=== PATIENT | female | born 1960 | race Caucasian/White ===

== ENCOUNTER 2018-07-29 14:08 | Emergency (ER) | payer OTHER | END 2018-07-29 14:30 | disposition left against medical advice (07) | LOC: JD.ED 14:08 | DX: Z53.21 Procedure and treatment not carried out due to patient leaving prior to being seen by health care provider (principal) ==

== ENCOUNTER 2018-09-14 11:04 | Emergency (ER) | payer MEDICAID, OTHER ==
--- NOTE | 2018-09-14 13:02 | EDM.PDOC ---
ED HPI GENERAL MEDICAL PROBLEM - General Chief Complaint: General Stated Complaint: TEETH PAIN AND ARTHRITIS PAIN Time Seen by Provider: 09/14/18 12:44 Source of Information: Reports: Patient, RN Notes Reviewed History Limitations: Reports: No Limitations - History of Present Illness INITIAL COMMENTS - FREE TEXT/NARRATIVE: The patient states that she moved here from [place], and does not have a PCP. She states that her upper and lower dentures are ill fitting and causing discomfort , and that she has rheumatoid arthritis, for which she is currently taking only [id number] naproxen, one tablet 3-4 times a day. She states that she has been on a rheumatologic agent in the past, possibly a steroid. The patient states that her pain is worse this winter - her first in [place] - particularly of her bilateral wrists, bilateral knees, and toes. The patient denies having any gastrointestinal symptoms. No recent fever. The patient states that she saw her PCP, Sophia Prince, but that [facility] was not comfortable in prescribing a rheumatologic agent, and referred the patient to a Net Applications Developer in [place] (who's name the patient does not recall) . The patient has an appointment to see the Net Applications Developer on March 19, 2019. The patient does not have a dentist. - Related Data Allergies Allergy/AdvReac Type Severity Reaction Status Date / Time No Known Allergies Allergy Verified 09/14/18 11:29 Home Meds: Home Meds . [No Known Home Meds] 09/14/18 [History] Past Medical History HEENT History: Reports: Other (See Below) Other HEENT History: full upper and lower dentures Musculoskeletal History: Reports: RA - Past Surgical History HEENT Surgical History: Reports: Oral Surgery (wisdom teeth extraction, dentures ) Social & Family History - Tobacco Use Smoking Status *Q: Current Every Day Smoker Years of Tobacco use: 23 Packs/Tins Daily: 0.5 Packs/Tins Daily Comment: Down from 09/24 ppd - Caffeine Use Caffeine Use: Reports: Soda - Alcohol Use Alcohol Use History: Yes Alcohol Use Frequency: Socially - Recreational Drug Use Recreational Drug Use: No - Living Situation & Occupation Living situation: Reports: Single, with Family (Son) 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 ED EXAM, GENERAL - Physical Exam Exam: See Below Exam Limited By: No Limitations General Appearance: Alert, WD/WN, No Apparent Distress Eye Exam: Bilateral Eye: EOMI, Normal Inspection Ears: Normal External Exam, Hearing Grossly Normal Nose: Normal Inspection Throat/Mouth: Normal Inspection, Normal Lips, Normal Oropharynx, Normal Voice, No Airway Compromise, Other (Normal-appearing upper and lower dentures) Head: Atraumatic, Normocephalic Neck: Normal Inspection, Full Range of Motion. No: Lymphadenopathy (L), Lymphadenopathy (R) Respiratory/Chest: No Respiratory Distress, Lungs Clear, Normal Breath Sounds, No Accessory Muscle Use Cardiovascular: Normal Peripheral Pulses, Regular Rate, Rhythm, No Edema, No Gallop, No JVD, No Murmur, No Rub GI/Abdominal: Normal Bowel Sounds, Soft, Non-Tender, No Organomegaly, No Distention, No Abnormal Bruit, No Mass (Female) Exam: Deferred Rectal (Female) Exam: Deferred Back Exam: Normal Inspection, Full Range of Motion, NT Extremities: Normal Inspection, Normal Range of Motion, No Pedal Edema, Normal Capillary Refill, Other (No visible abnormality to the patient's lateral wrist, such as swelling, erythema, ecchymosis, or rash) Neurological: Alert, Oriented, Normal Cognition, No Motor/Sensory Deficits Psychiatric: Normal Affect Skin Exam: Warm, Dry, Intact, Normal Color, No Rash Course - Vital Signs Last Recorded V/S: Last Vital Signs Temp 36.9 C 09/14/18 11:24 Pulse 107 H 09/14/18 11:24 Resp 19 09/14/18 11:24 BP 123/72 09/14/18 11:24 Pulse Ox 97 09/14/18 11:24 - Re-Assessments/Exams Free Text/Narrative Re-Assessment/Exam: 09/14/18 12:56 Unfortunately, there is not much that we can do here in the ED to help the patient with her ill-fitting dentures or with her rheumatoid arthritis. I don't believe that it would be appropriate for me to prescribe a medication such as methotrexate or Humira, as these medications have potentially significant side effects, and need to be closely monitored. For today's purposes, we will provide the patient with a list of local dentists, and I will refer the patient to Dr. Meza, who may more comfortable in treating the patient with a rheumatologic agent that the patient's current PCP, Sophia Villasenor, at least until the patient can be seen by a Net Applications Developer in February. Departure - Departure Time of Disposition: 12:57 Disposition: Home, Self-Care 01 Condition: Good Clinical Impression: Ill-fitting dentures, Rheumatoid arthritis - Discharge Information *PRESCRIPTION DRUG MONITORING PROGRAM REVIEWED*: Not Applicable *COPY OF PRESCRIPTION DRUG MONITORING REPORT IN PATIENT [place]: Not Applicable Instructions: Arthritis, [id number] Referrals: Kimberly Meza MD [Physician] - Forms: ED Department Discharge Additional Instructions: You were seen in the emergency room for discomfort from ill-fitting dentures, as well as wrist, knee, and toe pain from her rheumatoid arthritis. Unfortunately, the emergency department is not in a position to address denture issues or chronic issues such as rheumatoid arthritis. You have been provided with a list of local dentists. Please follow-up with Dr. Kimberly Meza, to see if she might be able to prescribe an rheumatologic agent, at least until you can see your Net Applications Developer in [place] on March 19, 2019. If any other problems, please do not hesitate to return to the ER.
== END 2018-09-14 13:09 | disposition home or self-care (01) ==
LOC: JD.ED 11:04
DX: M06.9 Rheumatoid arthritis, unspecified (principal); K08.89 Other specified disorders of teeth and supporting structures; F17.210 Nicotine dependence, cigarettes, uncomplicated
CPT/HCPCS: 99281; 99282